=== PATIENT | male | born 1990 | race Caucasian/White ===

== ENCOUNTER 2020-05-06 20:20 | Emergency (ER) | payer SELFPAY ==
[~2020-05-06] VITALS: Ht 177.8 cm; Wt 136.4 kg
[2020-05-06] MEDS ORDERED: FentaNYL CITRATE-PF 100 MCG/2 ML VIAL IVP ONE (21:15)
[2020-05-06] MEDS ORDERED: MIDAZOLAM HCL 2 MG/2 ML VIAL IVP ONE (21:45)
[2020-05-06 23:21] VITALS: BP 110/69
== END 2020-05-07 00:03 | disposition home or self-care (01) ==
LOC: EMS 20:21
DX: S83.005A Unspecified dislocation of left patella, initial encounter (principal); X50.1XXA Overexertion from prolonged static or awkward postures, initial encounter; Y93.67 Activity, basketball; Y92.89 Other specified places as the place of occurrence of the external cause; Y99.8 Other external cause status
CPT/HCPCS: 27560; 73562; 99285; J3010; J2250